=== PATIENT | female | born 2000 | race Caucasian/White ===

== ENCOUNTER 2024-01-30 18:39 | Emergency (ER) | payer MEDICAID ==
[~2024-01-30] VITALS: Ht 162.6 cm; Wt 60.0 kg
[2024-01-30 18:53] VITALS: O2SAT 99
[2024-01-30] MEDS: ACETAMINOPHEN 325MG TABLET PO ONE (21:00)
[2024-01-30 21:58] LABS: CLARITY URINE CLEAR (CLEAR); COLOR URINE YELLOW (YELLOW); GLUCOSE URINE NEGATIVE (NEGATIVE); KETONES URINE TRACE (NEGATIVE); LEUKOCYTE ESTERASE URINE NEGATIVE (NEGATIVE); NITRITE URINE NEGATIVE (NEGATIVE); OCCULT BLOOD URINE 1+ (NEGATIVE); PH URINE 6.5 (4.5-8.0); PROTEIN URINE TRACE (NEGATIVE); SPECIFIC GRAVITY URINE 1.024 (1.005-1.030)
[2024-01-30 22:00] VITALS: BP 119/76; PULSE 71; RESP 19; TEMP 36.55848; O2SAT 100
[2024-01-30 22:19] LABS: BACTERIA URINE 1+; SQUAMOUS EPITHELIAL CELL URINE 1+ /lpf (RARE/1+); WBC URINE 0-2 /hpf (0-2)
== END 2024-01-30 22:15 | disposition home or self-care (01) ==
LOC: ER 18:39
DX: O99.891 Other specified diseases and conditions complicating pregnancy (principal); Z98.890 Other specified postprocedural states; Z3A.09 9 weeks gestation of pregnancy
CPT/HCPCS: 76801; 81003; 99284